=== PATIENT | female | born 1960 | race Caucasian/White ===

== ENCOUNTER 2023-01-09 11:03 | Emergency (ER) | payer OTHER ==
--- OUTSIDE RECORDS SUMMARY | 2023-01-09 11:07 | XMS REPORT | Continuity of Care Document ---
:1960 Author Organization [facility] t Address [address] [place] [address] [place] [id number] Care Team Providers Name Role Phone Unavailable Unavailable Unavailable Payers Payer Name Policy Type Policy Number Effective Date Expiration Date S ource Problems This patient has no known problems. Allergies, Adverse Reactions, Alerts This patient has no known allergies or adverse reactions. Medications This patient has no known medications. Procedures This patient has no known procedures. Results This patient has no known results.
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
[2023-01-09] MEDS ORDERED: ACETAMINOPHEN 500 MG TAB ONE (12:41)
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
[2023-01-09 13:46] VITALS: TEMP 97.8; O2SAT 100
[2023-01-09 13:47] VITALS: BP 118/58
== END 2023-01-09 13:35 | disposition home or self-care (01) ==
LOC: ER 11:03
DX: S00.83XA Contusion of other part of head, initial encounter (principal); R07.9 Chest pain, unspecified
CPT/HCPCS: 70450; 71250; 72125; 99284